=== PATIENT | male | born 1940 | race Caucasian/White ===

== ENCOUNTER → 2020-02-27 11:29 | Outpatient (CLI) | payer MEDICARE, OTHER, SELFPAY | PROVIDERS: Visit Provider Specialist | DX: N39.0 Urinary tract infection, site not specified (principal) | CPT/HCPCS: 87086 ==

== ENCOUNTER → 2020-04-12 14:41 | Outpatient (CLI) | payer MEDICARE, OTHER, SELFPAY | PROVIDERS: Visit Provider Specialist | DX: C61 Malignant neoplasm of prostate (principal); R31.9 Hematuria, unspecified; R33.9 Retention of urine, unspecified; Z87.440 Personal history of urinary (tract) infections | CPT/HCPCS: 51702; 87086 ==

== ENCOUNTER → 2020-04-24 11:47 | Outpatient (CLI) | payer MEDICARE, OTHER, SELFPAY ==
[2020-04-25 07:49] LABS: COVID19 Sendout Not Detected (Not Detect)
== END ==
PROVIDERS: PCP Physician Assistant Medical; Visit Provider Nurse Practitioner
DX: Z11.59 Encounter for screening for other viral diseases (principal)
CPT/HCPCS: 87635

== ENCOUNTER 2020-04-27 12:20 | Day surgery (SDC) | payer MEDICARE, OTHER, SELFPAY ==
[2020-04-27] VITALS (7 sets, daily range): BP systolic 139–174; BP diastolic 70–92; PULSE 77–98; RESP 12–18; TEMP 36.2–37; O2SAT 92–98; BMI 27.6
[2020-04-27] MEDS: VANCOMYCIN 1,000 MG/200 ML PIGGYBACK 200 MG IV (14:59)
--- NOTE | 2020-04-27 15:08 | PM.PREOP ---
Pre-operative Note Interval Note History & Physical reviewed/Exam performed by Physician: Yes Changes to H&P: No
[2020-04-27] MEDS: GENTAMICIN 240 MG in SODIUM CHLORIDE 0.9% 100 ML 106 ML IV (15:50)
--- NOTE | 2020-04-27 16:07 | SUR.OPER ---
Lithotomy on padded OR bed, head on pillow, arms secured on padded arm boards at <90 degrees abduction. Legs secured in padded yellow fins stirrups.
[2020-04-27] MEDS: BELLADONNA/OPIUM SUPPOSITORIES 1 EACH PR (16:15)
--- NOTE | 2020-04-27 16:19 | PM.OP.1 ---
Operative Date/Time/Diagnoses Date of procedure: 04/27/20 Time of procedure: 16:19 Pre-op diagnosis: 1. Hematuria 2. Clot retention 3. History of advanced prostate cancer Post-op diagnosis: same Procedure & Clinicians Procedure: 1. Transurethral resection of prostate (greater than 1 year following history of TURP). Same procedure as scheduled: Yes Indications: 1. Hematuria 2. Clot retention 3. History of advanced prostate cancer Click Yes if Unassisted: Yes Anesthesia Type: General Operative Notes Findings: Urethra-bulbar and penile segments are of normal caliber, without lesion, or stricture. External sphincter- gaping, with radiation change. Prostate-status post previous TUR with hemorrhagic regrowth. Bladder-2+ trabeculation. There are radiation changes, particularly a of the anterior wall and around the bladder neck. 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 Closure Type: not applicable Specimen(s): none sent Applied: catheter (#20F silicone Quiñones catheter.) Estimated Blood Loss (mL): 0 Blood products transfused: none Tourniquet time (min): 0 Procedure in detail: Patient was positioned in supine was administered general anesthesia. He was then repositioned the semi lithotomy in the lower abdomen, genitalia, and groin were prepped and draped in sterile fashion. Next the 25 [place] resectoscope was advanced lower urinary tract under direct visualization with the findings as described above. The working element was then fitted to the scope and a button electrode was utilized. The prostatic fossa was then resected using the button electrode beginning at the bladder neck and extending distally to the level of the verumontanum. At no point was button resection carried out deeper than the capsule nor more distally the verumontanum. Intraoperative photographs were obtained illustrating significant anatomic features. The bladder was then left partially filled and the resectoscope was removed. A 20 [place] silicone Quiñones catheter was then inserted lower urinary tract, the balloon was filled with 10 cc of sterile water and was then placed to gravity drainage. The patient was then repositioned in supine, was awakened, and transferred for to a gurney before transportation to the PACU. Complications: none Post-operative Condition: stable Disposition: PACU Plan for aftercare: Discharge home
== END 2020-04-27 17:05 | disposition home or self-care (01) ==
LOC: OR 12:27 → AC 12:28
PROVIDERS: PCP Physician Assistant Medical; Referring Provider Specialist; Visit Provider Specialist
PROC: 0VT08ZZ Resection of Prostate, Via Natural or Artificial Opening Endoscopic (ICD-10-PCS; CPT 52601; principal; 2020-04-27 15:00)
DX: C61 Malignant neoplasm of prostate (principal); Z79.01 Long term (current) use of anticoagulants
CPT/HCPCS: 52601; 52630; J2250; J2405; J2704; J3010

== ENCOUNTER → 2020-09-13 15:06 | Outpatient (CLI) | payer MEDICARE, OTHER, SELFPAY | PROVIDERS: PCP Physician Assistant Medical; Visit Provider Specialist | DX: C61 Malignant neoplasm of prostate (principal); N30.40 Irradiation cystitis without hematuria; R33.9 Retention of urine, unspecified; Z87.440 Personal history of urinary (tract) infections | CPT/HCPCS: 51702; 87077; 87086; 96402; 99213; J9155 ==

== ENCOUNTER → 2020-10-16 11:32 | Outpatient (CLI) | payer MEDICARE, OTHER, SELFPAY | PROVIDERS: PCP Physician Assistant Medical; Visit Provider Specialist | DX: N39.0 Urinary tract infection, site not specified (principal); C61 Malignant neoplasm of prostate; Z87.440 Personal history of urinary (tract) infections | CPT/HCPCS: 51702; 87077; 87086; 96402; 99214; J9155 ==

== ENCOUNTER → 2020-11-15 11:39 | Outpatient (CLI) | payer MEDICARE, OTHER, SELFPAY | PROVIDERS: PCP Physician Assistant Medical; Visit Provider Specialist | DX: N30.40 Irradiation cystitis without hematuria (principal); R33.9 Retention of urine, unspecified; C61 Malignant neoplasm of prostate | CPT/HCPCS: 87077; 87086; 87186; 96402; 99214; J9155 ==

== ENCOUNTER → 2020-12-20 14:45 | Outpatient (CLI) | payer MEDICARE, OTHER, SELFPAY | PROVIDERS: PCP Physician Assistant Medical; Visit Provider Specialist | DX: C61 Malignant neoplasm of prostate (principal); N30.40 Irradiation cystitis without hematuria; R33.9 Retention of urine, unspecified; Z87.440 Personal history of urinary (tract) infections | CPT/HCPCS: 51702; 87077; 87086; 87186; 96402; 99213; J9155 ==

== ENCOUNTER → 2021-01-30 13:17 | Outpatient (CLI) | payer MEDICARE, OTHER, SELFPAY | PROVIDERS: PCP Physician Assistant Medical; Visit Provider Specialist | DX: C61 Malignant neoplasm of prostate (principal); R33.9 Retention of urine, unspecified; Z87.440 Personal history of urinary (tract) infections | CPT/HCPCS: 51701; 87077; 87086; 87186; 96372; 99214; J9155 ==

== ENCOUNTER → 2021-02-27 11:47 | Outpatient (CLI) | payer MEDICARE, OTHER, SELFPAY | PROVIDERS: PCP Physician Assistant Medical; Visit Provider Specialist | DX: C61 Malignant neoplasm of prostate (principal); C77.5 Secondary and unspecified malignant neoplasm of intrapelvic lymph nodes; R31.0 Gross hematuria; R33.9 Retention of urine, unspecified; N30.40 Irradiation cystitis without hematuria; Z87.440 Personal history of urinary (tract) infections | CPT/HCPCS: 51702; 87077; 87086; 87186; 96372; 99214; J9155 ==

== ENCOUNTER → 2021-03-27 11:20 | Outpatient (CLI) | payer MEDICARE, OTHER, SELFPAY | PROVIDERS: PCP Physician Assistant Medical; Referring Provider Specialist; Visit Provider Specialist | DX: R33.9 Retention of urine, unspecified (principal); Z87.440 Personal history of urinary (tract) infections; C61 Malignant neoplasm of prostate | CPT/HCPCS: 51702; 87077; 87086; 87186; 96402; J9155 ==

== ENCOUNTER → 2021-04-24 12:23 | Outpatient (CLI) | payer MEDICARE, OTHER, SELFPAY | PROVIDERS: PCP Physician Assistant Medical; Visit Provider Specialist | DX: C61 Malignant neoplasm of prostate (principal); C77.5 Secondary and unspecified malignant neoplasm of intrapelvic lymph nodes; R30.0 Dysuria | CPT/HCPCS: 51702; 87077; 87086; 87186; 96402; J9155 ==

== ENCOUNTER → 2021-05-23 09:33 | Outpatient (CLI) | payer MEDICARE, OTHER, SELFPAY | PROVIDERS: PCP Physician Assistant Medical; Visit Provider Specialist | DX: C61 Malignant neoplasm of prostate (principal); N39.0 Urinary tract infection, site not specified | CPT/HCPCS: 51702; 87077; 87086; 87186; 96402; J9155 ==

== ENCOUNTER → 2021-06-26 09:21 | Outpatient (CLI) | payer MEDICARE, OTHER, SELFPAY | PROVIDERS: PCP Physician Assistant Medical; Visit Provider Specialist | DX: R30.0 Dysuria (principal); C61 Malignant neoplasm of prostate; C77.5 Secondary and unspecified malignant neoplasm of intrapelvic lymph nodes | CPT/HCPCS: 51702; 87077; 87086; 87186; 96402; J9155 ==

== ENCOUNTER → 2021-07-30 11:34 | Outpatient (CLI) | payer MEDICARE, OTHER, SELFPAY | PROVIDERS: PCP Physician Assistant Medical; Visit Provider Specialist | DX: C61 Malignant neoplasm of prostate (principal); N30.40 Irradiation cystitis without hematuria; R30.0 Dysuria; R33.9 Retention of urine, unspecified; Z87.440 Personal history of urinary (tract) infections | CPT/HCPCS: 51702; 87077; 87086; 87186; 96372; 96402; 99214; J0897; J9155 ==

== ENCOUNTER → 2021-09-02 11:51 | Outpatient (CLI) | payer MEDICARE, OTHER, SELFPAY | PROVIDERS: PCP Physician Assistant Medical; Referring Provider Specialist; Visit Provider Specialist | DX: R30.0 Dysuria (principal); C61 Malignant neoplasm of prostate | CPT/HCPCS: 51702; 87086; 87147; 96402; J9155 ==

== ENCOUNTER → 2021-10-02 11:11 | Outpatient (CLI) | payer MEDICARE, OTHER, SELFPAY | PROVIDERS: PCP Physician Assistant Medical; Visit Provider Specialist | DX: R30.0 Dysuria (principal) | CPT/HCPCS: 51702; 87077; 87086; 87186; 96402; J9155 ==

== ENCOUNTER → 2021-10-30 10:45 | Outpatient (CLI) | payer MEDICARE, OTHER, SELFPAY | PROVIDERS: PCP Physician Assistant Medical; Visit Provider Specialist | DX: R30.0 Dysuria (principal); C61 Malignant neoplasm of prostate | CPT/HCPCS: 51702; 87077; 87086; 87186; 96402; J9155 ==

== ENCOUNTER → 2021-12-11 13:38 | Outpatient (CLI) | payer MEDICARE, OTHER, SELFPAY | PROVIDERS: PCP Physician Assistant Medical; Visit Provider Specialist | DX: C61 Malignant neoplasm of prostate (principal); R30.0 Dysuria | CPT/HCPCS: 51702; 87077; 87086; 87186; 96402; 99215; J9155 ==

== ENCOUNTER → 2022-01-16 14:09 | Outpatient (CLI) | payer MEDICARE, OTHER, SELFPAY | PROVIDERS: PCP Physician Assistant Medical; Visit Provider Specialist | DX: C61 Malignant neoplasm of prostate (principal); R30.0 Dysuria | CPT/HCPCS: 51702; 87077; 87086; 87186; 96402; J9155 ==

== ENCOUNTER → 2022-02-19 09:34 | Outpatient (CLI) | payer MEDICARE, OTHER, SELFPAY | PROVIDERS: PCP Physician Assistant Medical; Visit Provider Specialist | DX: C61 Malignant neoplasm of prostate (principal); R30.0 Dysuria; R33.9 Retention of urine, unspecified; N30.40 Irradiation cystitis without hematuria; Z87.440 Personal history of urinary (tract) infections | CPT/HCPCS: 51702; 87077; 87086; 87186; 96372; 96402; 99215; J0897; J9155 ==

== ENCOUNTER → 2022-03-19 11:40 | Outpatient (CLI) | payer MEDICARE, OTHER, SELFPAY | PROVIDERS: PCP Physician Assistant Medical; Visit Provider Specialist | DX: R33.9 Retention of urine, unspecified (principal); Z97.8 Presence of other specified devices | CPT/HCPCS: 51702; 87077; 87086; 87186 ==

== ENCOUNTER → 2022-04-16 09:10 | Outpatient (CLI) | payer MEDICARE, OTHER, SELFPAY ==
[2022-04-16 10:55] LABS: Appearance Urine UA CLOUDY; Bilirubin Urine UA NEGATIVE (NEGATIVE); Color Urine UA YELLOW; Glucose Urine UA NEGATIVE (Negative); Ketones Urine UA NEGATIVE (NEGATIVE); Leukocyte Esterase Urine UA 3+ (NEGATIVE); Nitrite Urine UA NEGATIVE (Negative); Occult Blood Urine UA 3+ (Negative); Protein Urine UA TRACE (Negative); Urobilinogen Urine UA 0.2 E.U./dL (0.2)
[2022-04-16 11:22] LABS: Amorphous Sediment Urine 1+; Bacteria Urine Many (>30); Culture Indicated Urine Specimen Cultured; RBC Urine >100/HPF (0-5/HPF); WBC Urine 30-100/HPF (0-5/HPF)
== END ==
PROVIDERS: PCP Physician Assistant Medical; Visit Provider Specialist
DX: N30.40 Irradiation cystitis without hematuria (principal); R31.0 Gross hematuria; R33.9 Retention of urine, unspecified; Z87.440 Personal history of urinary (tract) infections; C61 Malignant neoplasm of prostate; Z97.8 Presence of other specified devices
CPT/HCPCS: 81001; 87077; 87086; 87186; 99214

== ENCOUNTER → 2022-05-14 10:17 | Outpatient (CLI) | payer MEDICARE, OTHER, SELFPAY | PROVIDERS: PCP Physician Assistant Medical; Visit Provider Specialist | DX: R33.9 Retention of urine, unspecified (principal); R82.71 Bacteriuria; Z97.8 Presence of other specified devices | CPT/HCPCS: 51702; 87077; 87086; 87186; 96372; J1580 ==

== ENCOUNTER → 2022-06-11 09:44 | Outpatient (CLI) | payer MEDICARE, OTHER, SELFPAY | PROVIDERS: PCP Physician Assistant Medical; Visit Provider Specialist | DX: R33.9 Retention of urine, unspecified (principal); Z97.8 Presence of other specified devices | CPT/HCPCS: 51702; 87086 ==

== ENCOUNTER → 2022-07-14 11:26 | Outpatient (CLI) | payer MEDICARE, OTHER, SELFPAY | PROVIDERS: PCP Physician Assistant Medical; Visit Provider Specialist | DX: R33.9 Retention of urine, unspecified (principal); Z87.440 Personal history of urinary (tract) infections; Z97.8 Presence of other specified devices | CPT/HCPCS: 51702; 87077; 87086; 87186 ==

== ENCOUNTER → 2022-08-12 11:50 | Outpatient (CLI) | payer MEDICARE, OTHER, SELFPAY | PROVIDERS: PCP Physician Assistant Medical; Visit Provider Specialist | DX: R31.0 Gross hematuria (principal); R33.9 Retention of urine, unspecified; Z97.8 Presence of other specified devices | CPT/HCPCS: 51702; 87077; 87086; 87186 ==

== ENCOUNTER → 2022-09-12 09:07 | Outpatient (CLI) | payer MEDICARE, OTHER, SELFPAY | PROVIDERS: PCP Physician Assistant Medical; Visit Provider Specialist | DX: R31.0 Gross hematuria (principal); R33.9 Retention of urine, unspecified; Z87.440 Personal history of urinary (tract) infections; Z97.8 Presence of other specified devices | CPT/HCPCS: 51702; 87077; 87086; 87147; 87186 ==

== ENCOUNTER → 2022-10-10 11:15 | Outpatient (CLI) | payer MEDICARE, OTHER, SELFPAY | PROVIDERS: PCP Physician Assistant Medical; Visit Provider Specialist | DX: R30.0 Dysuria (principal); R33.9 Retention of urine, unspecified; Z97.8 Presence of other specified devices | CPT/HCPCS: 51702; 87077; 87086; 87186 ==

== ENCOUNTER → 2022-11-05 12:12 | Outpatient (CLI) | payer MEDICARE, OTHER, SELFPAY | PROVIDERS: PCP Physician Assistant Medical; Visit Provider Specialist | DX: Z97.8 Presence of other specified devices (principal) | CPT/HCPCS: 87077; 87086; 87186 ==

== ENCOUNTER → 2022-12-03 11:32 | Outpatient (CLI) | payer MEDICARE, OTHER, SELFPAY | PROVIDERS: PCP Physician Assistant Medical; Visit Provider Specialist | DX: R33.9 Retention of urine, unspecified (principal) | CPT/HCPCS: 51702; 87077; 87086; 87185; 87186 ==

== ENCOUNTER → 2022-12-31 11:07 | Outpatient (CLI) | payer MEDICARE, OTHER, SELFPAY | PROVIDERS: PCP Physician Assistant Medical; Visit Provider Specialist | DX: R31.0 Gross hematuria (principal); R33.9 Retention of urine, unspecified; Z87.440 Personal history of urinary (tract) infections; Z97.8 Presence of other specified devices | CPT/HCPCS: 51702; 87077; 87086; 87186 ==

== ENCOUNTER → 2023-02-04 11:54 | Outpatient (CLI) | payer MEDICARE, OTHER, SELFPAY | PROVIDERS: PCP Physician Assistant Medical; Visit Provider Specialist | DX: Z97.8 Presence of other specified devices (principal) | CPT/HCPCS: 87077; 87086; 87186 ==

== ENCOUNTER → 2023-03-03 11:15 | Outpatient (CLI) | payer MEDICARE, OTHER, SELFPAY | PROVIDERS: PCP Physician Assistant Medical; Visit Provider Specialist | DX: R31.0 Gross hematuria (principal); R33.9 Retention of urine, unspecified; Z97.8 Presence of other specified devices | CPT/HCPCS: 51702; 87077; 87086; 87186 ==

== ENCOUNTER → 2023-04-07 10:19 | Outpatient (CLI) | payer MEDICARE, OTHER, SELFPAY | PROVIDERS: PCP Physician Assistant Medical; Visit Provider Specialist | DX: R33.9 Retention of urine, unspecified (principal) | CPT/HCPCS: 51702; 87077; 87086; 87186 ==

== ENCOUNTER → 2023-05-12 10:38 | Outpatient (CLI) | payer MEDICARE, OTHER, SELFPAY | PROVIDERS: PCP Physician Assistant Medical; Visit Provider Specialist | DX: R31.0 Gross hematuria (principal); R33.9 Retention of urine, unspecified; Z97.8 Presence of other specified devices | CPT/HCPCS: 51702; 87077; 87086; 87186 ==

== ENCOUNTER → 2023-07-01 11:22 | Outpatient (CLI) | payer MEDICARE, OTHER, SELFPAY | PROVIDERS: PCP Nurse Practitioner; Visit Provider Specialist | DX: Z97.8 Presence of other specified devices (principal); R33.9 Retention of urine, unspecified; R31.0 Gross hematuria | CPT/HCPCS: 87086 ==

== ENCOUNTER → 2023-07-28 10:46 | Outpatient (CLI) | payer MEDICARE, OTHER, SELFPAY | PROVIDERS: PCP Nurse Practitioner; Visit Provider Specialist | DX: R33.9 Retention of urine, unspecified (principal) | CPT/HCPCS: 87077; 87086; 87186 ==

== ENCOUNTER → 2023-08-26 11:08 | Outpatient (CLI) | payer MEDICARE, OTHER, SELFPAY | PROVIDERS: PCP Nurse Practitioner; Visit Provider Specialist | DX: R33.9 Retention of urine, unspecified (principal); Z97.8 Presence of other specified devices; Z87.440 Personal history of urinary (tract) infections | CPT/HCPCS: 51702; 87086 ==